=== PATIENT | female | born 1950 | race American Indian/Alaskan Native ===

== ENCOUNTER 2017-05-08 03:36 | Emergency (ER) | payer OTHER ==
[2017-05-08 03:38] VITALS: BMI 23.8
[2017-05-08 03:57] VITALS: RESP 18; TEMP 97.3; O2SAT 100
--- NOTE | 2017-05-08 05:37 | C.PDOC ---
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 Patient reports she went for a dental visit 2 days ago for an implant measurement but does not recall trauma at that time. Denies dental pain, gum pain, dizziness. Time Seen by Provider: 05/08/17 04:07 Chief Complaint (Nursing): Dental Pain History Per: Patient History/Exam Limitations: no limitations Onset/Duration Of Symptoms: Days Current Symptoms Are (Timing): Still Present Recent travel outside of the [place]: No Past Medical History Reviewed: Historical Data, Nursing Documentation, Vital Signs Vital Signs: Last Vital Signs Temp 97.3 F L 05/08/17 03:49 Pulse 76 05/08/17 05:48 Resp 18 05/08/17 05:48 BP 166/100 H 05/08/17 05:48 Pulse Ox 100 05/08/17 05:54 - Medical History PMH: Anemia, Arthritis, HTN, Hyperthyroidism, Migraine Surgical History: Appendectomy - [facility] COMPLETE THYROIDECTOMY (10/14/14) DX ULTRASOUND-HEAD/NECK (05/21/14) PERCUTAN NEEDLE BX OF THYROID GLAND (05/21/14) Family History: States: Unknown Family Hx - Social History Hx Tobacco Use: No Hx Alcohol Use: No Hx Substance Use: No - Immunization History Hx Tetanus Toxoid Vaccination: No Hx Influenza Vaccination: No Hx Pneumococcal Vaccination: No Review Of Systems Constitutional: Negative for: Fever, Chills ENT: Positive for: Other (Tongue bleeding). Negative for: Mouth Pain Physical Exam - Physical Exam Appears: Non-toxic, No Acute Distress Skin: Normal Color, Warm, Dry Head: Atraumatic, Normacephalic Eye(s): bilateral: Normal Inspection Oral Mucosa: Moist, Other (No signs of trauma) Tongue: No Swelling, Lesions (Small wart like to tip of tongue), No Bite, No Bleeding, No Other (Ecchymosis) Lips: Normal Appearing Teeth: Normal Dentition Gingiva: Normal Appearing, No Erythema, No Swelling, No Bleeding Throat: Normal, No Erythema Neck: Normal, Supple Neurological/Psych: Oriented x3 ED Course And Treatment O2 Sat by Pulse Oximetry: 100 (Room air) Pulse Ox Interpretation: Normal Progress Note: Patient observed in the ER for 45 minutes with no recurrent bleeding. Will discharge home with instructions to follow up with dentist for further evaluation. 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 - Scribe Statement The provider has reviewed the documentation as recorded by the Scribdmitri Almonte All medical record entries made by the Griselda were at my direction and personally dictated by me. I have reviewed the chart and agree that the record accurately reflects my personal performance of the history, physical exam, medical decision making, and the department course for this patient. I have also personally directed, reviewed, and agree with the discharge instructions and disposition.
[2017-05-08 05:48] VITALS: BP 166/100; PULSE 76
== END 2017-05-08 05:49 | disposition home or self-care (01) ==
LOC: C.ER 03:36
DX: K14.9 Disease of tongue, unspecified (principal)

== ENCOUNTER 2017-07-06 05:52 | Day surgery (SDC) | payer OTHER ==
[2017-06-16 10:39] VITALS: BMI 27.7
[2017-07-06] MEDS ORDERED: Lactated Ringer's 500 ML IV ONE (06:00)
[2017-07-06] MEDS ORDERED: Phenylephrine 2.5% Opht Soln OS SCH (06:00)
[2017-07-06] MEDS ORDERED: Tropicamide 1% Opht SOLUTION OS SCH (06:00)
[2017-07-06] MEDS ORDERED: Lactated Ringer's 1,000 ML IV ONE (06:57)
[2017-07-06] MEDS ORDERED: Carbachol 0.01% IO ONE (07:45)
[2017-07-06] MEDS: Chondroitin/Hyaluronate Opth Syringe KIT (0.55 ml-0.5 ml) IO ONE ×2 (08:22→09:15)
[2017-07-06] MEDS: Hyaluronidase Human, Recombi 150 U/ML VIAL ONE ×2 (08:23→09:15)
[2017-07-06] MEDS: Povidone Iodine Ophthalmic 5% Soln ONE ×2 (08:23→09:15)
[2017-07-06] MEDS: Tobramycin/Dexamethasone OPHT OINT ONE ×2 (08:24→09:48)
[2017-07-06] MEDS: Tetracaine 0.5% Ophth (OR ONLY) ONE ×2 (08:24→09:15)
[2017-07-06] MEDS ORDERED: Midazolam 2 MG/2 ML VIAL ONE (09:12)
[2017-07-06] MEDS ORDERED: Propofol 10 mg/ml Inj (20 ML) ONE (09:13)
[2017-07-06 10:42] VITALS: O2SAT 100
[2017-07-06 11:59] VITALS: TEMP 97.7
[2017-07-06 14:48] VITALS: BP 131/82; PULSE 87; RESP 15
--- NOTE | 2017-07-08 01:58 | OP ---
PROCEDURE DATE: 07/06/2017 PREOPERATIVE DIAGNOSIS: Mature nuclear cortical cataract, left eye. POSTOPERATIVE DIAGNOSIS: Mature nuclear cortical cataract, left eye. ATTENDING: Mehran Avery MD ANESTHESIA: Retrobulbar block. COMPLICATIONS: None. ESTIMATED BLOOD LOSS: Zero. DESCRIPTION OF PROCEDURE: The patient was brought to the operating room and properly identified. Anesthesia staff administered intravenous sedation and retrobulbar block was given to the surgical eye. The patient was then prepped and draped in the usual sterile fashion. Attention was turned to the surgical eye. A lid speculum was placed into interpalpebral fissure. Sitting temporally, two paracentesis incisions were made. The anterior chamber was filled with viscoelastic and a triplanar clear corneal incision was made. Using a cystitome, anterior capsular leaflet was created. Utrata forceps were used to create a continuous curvilinear capsulorrhexis. Balanced salt solution on a cannula was used to hydrodissect and hydrodelineate the lens. The lens was then phacoemulsified with no complications. Automated irrigation and aspiration was used to remove the cortex. Viscoelastic was used to deepen the anterior chamber. The lens was placed in the capsular bag. Automated irrigation and aspiration was used to remove the viscoelastic. The anterior chamber was filled with Miochol. The wounds were hydrated with balanced salt solution. There was noted to be no leak at the end of the case and the lens was well positioned. The lid speculum was removed. The eye was given antibiotics and steroids and covered with a patch and shield. The patient was returned to the recovery room in stable condition. Mehran Avery MD
== END 2017-07-06 14:27 | disposition home or self-care (01) ==
LOC: C.SDS 05:52
PROVIDERS: ATTEND Ophthalmology
DX: H25.12 Age-related nuclear cataract, left eye (principal); H25.012 Cortical age-related cataract, left eye
CPT/HCPCS: 66984; J2250; J2704; J3470; J7120; V2632